=== PATIENT | female | born 1965 | race Caucasian/White ===

== ENCOUNTER 2016-12-26 05:08 | Emergency (ER) | payer BC ==
[~2016-12-26] VITALS: Ht 175.3 cm; Wt 81.6 kg
[2016-12-26 05:39] LABS: Urine Bilirubin Negative (Negative); Urine Blood 3+ /uL (Negative); Urine Color PINK (Yellow); Urine Glucose Normal (Normal); Urine Ketone Negative (Negative); Urine Nitrite Negative (Negative); Urine RBC 1 /hpf (0 - 4); Urine Squamous Epithelial Cell FEW /hpf (<5); Urine Urobilinogen Normal (Negative); Urine pH 6.5 (5.0-8.0)
[2016-12-26 06:33] LABS: BUN/Creatinine Ratio 23.9; Bilirubin, Total 0.9 mg/dL (0.2-1.0); Calcium 8.8 mg/dL (8.5-10.1); Potassium 3.6 mmol/L (3.5-5.1); Total Protein 7.5 g/dL (6.4-8.2)
[2016-12-26 06:37] LABS: Basophils # (auto) 0.1 uL; Basophils % (auto) 0.4 % (0.0-2.0); Eosinophils # (auto) 0.1 uL; Eosinophils % (auto) 0.4 % (0.0-7.0); Hematocrit 42.1 % (36.0-46.0); Hemoglobin 14.4 g/dL (12.2-16.2); Lymphocytes # (auto) 1.3 uL; Lymphocytes % (auto) 8.6 % (10.0-50.0); Mean Corpuscular Hemoglobin 29.5 pg (28.0-32.0); Mean Corpuscular Hgb Conc. 34.3 g/dL (32.0-36.0); Mean Corpuscular Volume 86.2 fL (80.0-100.0); Mean Platelet Volume 7.6 fL (6.9-10.8); Monocytes # (auto) 0.9 uL; Monocytes % (auto) 6.3 % (0.0-12.0); Neutrophils # (auto) 12.4 uL; Neutrophils % (auto) 84.3 % (37.0-80.0); Platelet Count (auto) 252 10^3/uL (140-450); White Blood Cell 14.7 10^3/uL (4.4-10.8)
[2016-12-26 06:45] VITALS: BP 147/81
[2016-12-26] MEDS ORDERED: CIPROFLOXACIN HCL 500 MG TAB PO ONE (07:30)
== END 2016-12-26 07:34 | disposition home or self-care (01) ==
LOC: ER 05:12
DX: R31.9 Hematuria, unspecified (principal); N39.0 Urinary tract infection, site not specified; I10 Essential (primary) hypertension; Z86.73 Personal history of transient ischemic attack (TIA), and cerebral infarction without residual deficits
CPT/HCPCS: 36415; 80053; 81001; 81025; 85025

== ENCOUNTER 2019-04-14 08:00 | Emergency (ER) | payer BC ==
[~2019-04-14] VITALS: Ht 175.3 cm; Wt 78.0 kg
[2019-04-14 08:57] LABS: Basophils # (auto) 0.1 uL; Basophils % (auto) 1.3 % (0.0-2.0); Eosinophils # (auto) 0.1 uL; Eosinophils % (auto) 2.8 % (0.0-7.0); Hematocrit 43.3 % (36.0-46.0); Hemoglobin 14.7 g/dL (12.2-16.2); Lymphocytes # (auto) 1.2 uL; Lymphocytes % (auto) 24.8 % (10.0-50.0); Mean Corpuscular Hemoglobin 29.1 pg (28.0-32.0); Mean Corpuscular Hgb Conc. 33.8 g/dL (32.0-36.0); Mean Corpuscular Volume 86.1 fL (80.0-100.0); Monocytes # (auto) 0.5 uL; Monocytes % (auto) 10.5 % (0.0-12.0); Neutrophils % (auto) 60.6 % (37.0-80.0); Nucleated Red Blood Cells % 0.1 %; Platelet Count (auto) 239 10^3/uL (140-450); Red Blood Cells 5.03 10^6/uL (4.0-5.20); Red Cell Distribution Width 12.7 % (11.8-14.3); White Blood Cell 4.9 10^3/uL (4.4-10.8)
[2019-04-14 09:17] LABS: Alanine Aminotransferase 32 U/L (13-56); Albumin 3.8 g/dL (3.4-5.0); Anion Gap 10 (5-15); Aspartate Aminotransferase 21 U/L (15-37); Calcium 9.1 mg/dL (8.5-10.1); Carbon Dioxide 23 mmol/L (21-32); Chloride 107 mmol/L (98-107); GFR African American 123 mL/min; GFR Non-African American 102 mL/min; Glucose 107 mg/dL (74-106); Magnesium 2.2 mg/dL (1.6-2.6); Potassium 3.7 mmol/L (3.5-5.1); Sodium 140 mmol/L (136-145)
[2019-04-14 09:28] LABS: Alkaline Phosphatase 101 U/L (45-117); BUN/Creatinine Ratio 18.8; Bilirubin, Total 0.4 mg/dL (0.2-1.0); Blood Urea Nitrogen 12 mg/dL (7-18); Total Protein 7.2 g/dL (6.4-8.2)
[2019-04-14 09:41] LABS: Urine Bacteria NONE SEEN /hpf (None Seen); Urine Blood Negative /uL (Negative); Urine Specific Gravity 1.005 (1.001-1.035); Urine WBC <1 /hpf (0 - 5)
[2019-04-14 12:00] VITALS: BP 126/69
== END 2019-04-14 12:15 | disposition home or self-care (01) ==
LOC: ER 08:00
DX: I10 Essential (primary) hypertension (principal); F41.1 Generalized anxiety disorder; G62.9 Polyneuropathy, unspecified; Z86.73 Personal history of transient ischemic attack (TIA), and cerebral infarction without residual deficits
CPT/HCPCS: 36415; 70450; 71046; 80053; 81001; 83735; 84443; 84484; 85025; 93005

== ENCOUNTER → 2019-04-24 | Outpatient (CLI) | payer BC ==
[~2019-04-24] VITALS: Ht 175.3 cm; Wt 76.7 kg
[~2019-04-24] MED LIST: ADENOSINE 64 MG in GIVE UN-DILUTED 0 ML IV ONE; ADENOSINE 90 MG/30 ML INJ IV ONE
[2019-04-24 15:32] LABS: Basophils # (auto) 0 uL; Basophils % (auto) 0.6 % (0.0-2.0); Eosinophils # (auto) 0.1 uL; Eosinophils % (auto) 1.1 % (0.0-7.0); Hemoglobin 14.5 g/dL (12.2-16.2); Lymphocytes # (auto) 1.3 uL; Lymphocytes % (auto) 18.4 % (10.0-50.0); Mean Corpuscular Hemoglobin 29.7 pg (28.0-32.0); Mean Corpuscular Hgb Conc. 34.5 g/dL (32.0-36.0); Mean Corpuscular Volume 86.1 fL (80.0-100.0); Monocytes # (auto) 0.6 uL; Neutrophils % (auto) 70.9 % (37.0-80.0); Nucleated Red Blood Cells % 0.1 %; Platelet Count (auto) 247 10^3/uL (140-450); Red Blood Cells 4.88 10^6/uL (4.0-5.20); Red Cell Distribution Width 12.8 % (11.8-14.3)
[2019-04-24 15:50] LABS: Calcium 9.2 mg/dL (8.5-10.1); Potassium 3.8 mmol/L (3.5-5.1)
[2019-04-24 15:55] LABS: BUN/Creatinine Ratio 33.3; Bilirubin, Total 0.3 mg/dL (0.2-1.0); Total Protein 7.4 g/dL (6.4-8.2)
[2019-04-24 15:57] LABS: Free T4 (Free Thyroxine) 1.19 ng/dL (0.89-1.76)
[2019-04-25 11:49] LABS: Urine Blood Negative /uL (Negative); Urine Specific Gravity 1.009 (1.001-1.035)
== END | disposition home or self-care (01) ==
LOC: Rad HDHVI 13:58
PROVIDERS: ATTEND Internal Medicine
DX: Z00.00 Encounter for general adult medical examination without abnormal findings (principal); I07.1 Rheumatic tricuspid insufficiency; I10 Essential (primary) hypertension; I25.10 Atherosclerotic heart disease of native coronary artery without angina pectoris; E03.9 Hypothyroidism, unspecified; E78.00 Pure hypercholesterolemia, unspecified; K90.9 Intestinal malabsorption, unspecified; D51.9 Vitamin B12 deficiency anemia, unspecified; N39.0 Urinary tract infection, site not specified; R42 Dizziness and giddiness; R00.2 Palpitations; Z79.899 Other long term (current) drug therapy
CPT/HCPCS: 36415; 78452; 80053; 80061; 81003; 82306; 82607; 83036; 84439; 84443; 85025; 93005; 93306; 96374; 96375; A9500; J0153

== ENCOUNTER → 2019-04-29 | Outpatient (CLI) | payer BC ==
[2019-04-29 16:32] LABS: Protein, Urine 7.9 mg/dL (0.0-11.9)
[2019-04-29 18:08] LABS: 24 Hr. Total Protein, Urine 122.4 mg/24 Hr (<149.1)
== END | disposition home or self-care (01) ==
LOC: LAB 13:50
PROVIDERS: ATTEND Internal Medicine
DX: F41.9 Anxiety disorder, unspecified (principal); E34.0 Carcinoid syndrome
CPT/HCPCS: 83497; 83835; 84156; 84585

== ENCOUNTER → 2019-09-11 | Outpatient (CLI) | payer BC ==
[2019-09-11 13:11] LABS: Cholesterol 133 mg/dL (< 200); HDL Cholesterol 50 mg/dL (40-59); LDL Cholesterol 65 mg/dL (< 100); Triglycerides 141 mg/dL (< 150)
== END | disposition home or self-care (01) ==
LOC: LAB 09:04
PROVIDERS: ATTEND Internal Medicine
DX: E78.5 Hyperlipidemia, unspecified (principal)
CPT/HCPCS: 36415; 80061

== ENCOUNTER 2019-10-25 00:35 | Inpatient (IN) | payer BC ==
[~2019-10-25] VITALS: Ht 175.3 cm; Wt 78.9 kg
[2019-10-25] MEDS ORDERED: ACCU-CHEK COMFORT CURVE STRIP VI ONE (00:45)
[2019-10-25 02:21] LABS: Urine Bacteria FEW /hpf (None Seen); Urine Blood Negative /uL (Negative); Urine Specific Gravity 1.002 (1.001-1.035); Urine WBC <1 /hpf (0 - 5)
[2019-10-25 03:20] LABS: Basophils # (auto) 0 10 ^3/uL (0-0.2); Basophils % (auto) 0.6 % (0.0-2.0); Eosinophils # (auto) 0.1 10 ^3/uL (0-0.8); Eosinophils % (auto) 0.9 % (0.0-7.0); Hemoglobin 15.2 g/dL (12.2-16.2); Lymphocytes # (auto) 1.1 10 ^3/uL (0.4-5.4); Lymphocytes % (auto) 14.7 % (10.0-50.0); Mean Corpuscular Hemoglobin 29.2 pg (28.0-32.0); Mean Corpuscular Hgb Conc. 33.8 g/dL (32.0-36.0); Mean Corpuscular Volume 86.5 fL (80.0-100.0); Monocytes # (auto) 0.5 10 ^3/uL (0-1.3); Monocytes % (auto) 6.1 % (0.0-12.0); Neutrophils % (auto) 77.7 % (37.0-80.0); Platelet Count (auto) 240 10^3/uL (140-450); Red Cell Distribution Width 12.4 % (11.8-14.3); White Blood Cell 7.7 10^3/uL (4.4-10.8)
[2019-10-25] MEDS ORDERED: ACETAMINOPHEN 325 MG TAB PO ONE (03:30)
[2019-10-25 03:39] LABS: Albumin 3.9 g/dL (3.4-5.0); BUN/Creatinine Ratio 23.1; Calcium 9.1 mg/dL (8.5-10.1); Potassium 3.8 mmol/L (3.5-5.1)
[2019-10-25 03:42] LABS: Lactic Acid w/Reflex 2.1 mmol/L (0.4-2.0)
[2019-10-25 03:44] LABS: Bilirubin, Total 0.5 mg/dL (0.2-1.0); Total Protein 7.7 g/dL (6.4-8.2)
[2019-10-25 03:56] LABS: INR 0.96 (0.9-1.15); Partial Thromboplastin Time 25.6 sec (23.64-32.05)
[2019-10-25] MEDS ORDERED: MORPHINE SULFATE 4 MG/ML SYR/VIAL ONE (04:15)
[2019-10-25] MEDS ORDERED: ONDANSETRON HCL 4 MG/2 ML VIAL ONE (04:16)
[2019-10-25] MEDS ORDERED: HEPARIN SODIUM (PORCINE) 5000 UNITS/ML 1ML VIAL ONE ×2 (04:21→04:58)
[2019-10-25] MEDS ORDERED: ASPirin 81 mg TAB ONE (04:26)
[2019-10-25] MEDS ORDERED: LORazepam 2MG/ML-1ML VIAL ONE (04:26)
[2019-10-25] MEDS ORDERED: ATORVASTATIN 20 MG TAB PO ONE (04:30)
[2019-10-25] MEDS ORDERED: METOPROLOL TARTRATE 1MG/1ML-5ML VIAL IV ONE (04:30)
[2019-10-25] MEDS ORDERED: ASPirin 81 mg TAB PO ONE (04:30)
[2019-10-25] MEDS ORDERED: HEPARIN 1,000 UNITS/ml 1ML VIAL IV ONE (04:30)
[2019-10-25 04:58] LABS: Magnesium 2.5 mg/dL (1.6-2.6)
[2019-10-25] MEDS ORDERED: ATROPINE SULF 1 MG/10ml SYR ONE (04:58)
[2019-10-25] MEDS ORDERED: ANGIOMAX 250 MG VIAL IV ONE ×2 (04:58→06:11)
[2019-10-25] MEDS ORDERED: VERAPAMIL 2.5MG/ML INJ 2ML VIAL IV ONE ×2 (04:58→05:43)
[2019-10-25] MEDS ORDERED: IOHEXOL 350 MG/ML 100ML IJ ONE (04:59)
[2019-10-25] MEDS ORDERED: MIDAZOLAM HCL 1MG/1ML-2 ML VIAL ONE (04:59)
[2019-10-25] MEDS ORDERED: LIDOCAINE 2%HCL (LOCAL ANESTH.) INJ 20ML MDV ONE (04:59)
[2019-10-25] MEDS ORDERED: fentaNYL CITRATE 100 MCG/2 ML VL ONE (04:59)
[2019-10-25] MEDS ORDERED: SODIUM CHL 0.9% 0 ML ONE (05:01)
[2019-10-25 05:22] LABS: Basophils # (auto) 0 10 ^3/uL (0-0.2); Basophils % (auto) 0.6 % (0.0-2.0); Eosinophils # (auto) 0.1 10 ^3/uL (0-0.8); Eosinophils % (auto) 0.7 % (0.0-7.0); Hematocrit 45.1 % (36.0-46.0); Hemoglobin 15.4 g/dL (12.2-16.2); Lymphocytes # (auto) 1.3 10 ^3/uL (0.4-5.4); Lymphocytes % (auto) 15.1 % (10.0-50.0); Mean Corpuscular Hemoglobin 29.4 pg (28.0-32.0); Mean Corpuscular Hgb Conc. 34.1 g/dL (32.0-36.0); Mean Corpuscular Volume 86.2 fL (80.0-100.0); Monocytes # (auto) 0.5 10 ^3/uL (0-1.3); Monocytes % (auto) 5.5 % (0.0-12.0); Neutrophils # (auto) 6.9 10 ^3/uL (1.6-8.6); Neutrophils % (auto) 78.1 % (37.0-80.0); Nucleated Red Blood Cells % 0.1 %; Platelet Count (auto) 269 10^3/uL (140-450); Red Blood Cells 5.23 10^6/uL (4.0-5.20); Red Cell Distribution Width 12.7 % (11.8-14.3); White Blood Cell 8.9 10^3/uL (4.4-10.8)
[2019-10-25] MEDS ORDERED: MORPHINE SULFATE 4 MG/ML SYR/VIAL IV ONE (05:30)
[2019-10-25] MEDS ORDERED: ASPirin 325 MG TAB PO ONE (05:30)
[2019-10-25] MEDS ORDERED: ONDANSETRON HCL 4 MG/2 ML VIAL IV ONE (05:30)
[2019-10-25] MEDS ORDERED: LORazepam 2MG/ML-1ML VIAL IV ONE (05:30)
[2019-10-25 05:37] LABS: Potassium 3.7 mmol/L (3.5-5.1)
[2019-10-25 05:39] LABS: INR 0.97 (0.9-1.15); Partial Thromboplastin Time 26.5 sec (23.0-31.2)
[2019-10-25 05:47] LABS: BUN/Creatinine Ratio 23.8; Bilirubin, Total 0.4 mg/dL (0.2-1.0); Calcium 9.3 mg/dL (8.5-10.1); Total Protein 7.7 g/dL (6.4-8.2)
[2019-10-25] MEDS ORDERED: SODIUM CHL 0.9% 50 ML ONE (06:11)
[2019-10-25] MEDS ORDERED: HYDROmorphone HCL 2 MG/ML VL IV PRN ×2 (07:15)
[2019-10-25] MEDS ORDERED: cloNIDine HCL 0.1 MG TAB PO PRN (07:15)
[2019-10-25] MEDS ORDERED: ALPRAZolam 0.25 MG TAB PO PRN (07:15)
--- NOTE | 2019-10-25 08:40 | NUR ---
Telemetry admit from Gill Box Operator RODRIGUEZDUSTY admitted to Telemetry unit after SBAR received. Patient oriented to PAGE HUSTON RN primary RN, unit, room, bed, and unit policies regarding patient care and visiting hours. Patient now on continuous telemetry monitoring, tele box # 35 and telemetry reading on arrival to unit is sinus spencer 46. Patient placed on bedside oxygen 2L NC, respirations even and unlabored. Patient denies pain at this time. Patient is s/p left heart cath. Dressing to right groin is clean, dry and intact. Vasc band to right wrist, this RN instructed to begin removing air. Patient instructed to lay flat until 0900, verbalized understanding. Bed in low and locked position, call light within reach. Bed alarm on for safety.
[2019-10-25 08:45] VITALS: BP 105/66
[2019-10-25 09:00] VITALS: BP 105/66
--- NOTE | 2019-10-25 09:00 | NUR ---
Vasc band removed Vasc band removed, no signs or bleeding or hematoma noted at this time. Gauze and Tegaderm, applied. Patient educated on signs and symptoms to monitor for and to call for assistance. Will continue to monitor Q1 hour and PRN.
[2019-10-25] MEDS: SOD CHL 0.45% 1,000 ML IV SCH ×2 (09:03→20:35)
[2019-10-25] MEDS ORDERED: PROP60CA34 PO (09:10)
[2019-10-25] MEDS ORDERED: [UNRECOGNIZED DRUG - CODE] PO (09:10)
[2019-10-25] MEDS ORDERED: EVOL140I SC (09:10)
[2019-10-25] MEDS: ASPirin 81 mg TAB PO SCH (09:55)
--- NOTE | 2019-10-25 09:58 | NUR ---
Dr. Mathur at bedside Discussing plan of care with patient, family and this RN. New orders received. Will continue to monitor Q1 hour and PRN.
[2019-10-25] MEDS: NTG 0.1MG/HR TOPICAL PATCH TD SCH (10:00)
[2019-10-25] MEDS ORDERED: PANTOPRAZOLE 40 MG/10 ML VIAL INJ IV SCH (10:00)
[2019-10-25] MEDS: dilTIAZem 120MG ER CAP PO SCH (10:00)
[2019-10-25] MEDS ORDERED: PROP60CA37 PO (10:13)
--- NOTE | 2019-10-25 11:00 | NUR ---
Call from radiology [facility] they are unable to do abdomen CT due to the fact the patient received contrast today. Per protocol the patient should not receive contrast for 48 hours. Per [facility], CT will be rescheduled for Monday. Will continue to monitor Q1 hour and PRN.
[2019-10-25 13:00] VITALS: BP_SYST 107; BP_SYST 113; BP_DIAS 65; BP_DIAS 68
--- NOTE | 2019-10-25 15:15 | NUR ---
Patient ambulated Patient ambulated to restroom unassisted. Patient tolerated well. Will continue to monitor Q1 hour and PRN.
[2019-10-25 17:00] VITALS: BP 135/73
[2019-10-25] MEDS: SUCRALFATE 1 GM/10 ML ORAL SUSP PO SCH ×3 (17:35→21:08)
--- NOTE | 2019-10-25 19:10 | NUR ---
Closing Note Report given to operations supervisor 2nd shift RN. No signs or symptoms of distress noted at this time.
--- NOTE | 2019-10-25 19:30 | NUR ---
Opening Shift Note Assumed care of patient, AOX4. No S/S of distress/SOB or pain. Fall and safety precautions and in place. Instructed on POC and to call for assist PRN, patient verbalized understanding and in agreement. Will continue to monitor for changes Q1hr and PRN.
[2019-10-25] MEDS: ACETAMINOPHEN 500 MG TAB PO PRN (20:54)
[2019-10-25] MEDS: PANTOPRAZOLE 40 MG TAB PO SCH (21:08)
[2019-10-25 22:00] VITALS: BP 114/63
[2019-10-26] MEDS: SOD CHL 0.45% 1,000 ML IV SCH ×2 (01:40→23:15)
[2019-10-26 05:00] VITALS: BP 110/66
--- NOTE | 2019-10-26 05:00 | NUR ---
COVID SWAB PER MD ORDER, COVID SWAB APPROPRIATELY OBTAINED AND SENT TO LAB. WILL CONTINUE TO MONITOR.
[2019-10-26] MEDS: SUCRALFATE 1 GM/10 ML ORAL SUSP PO SCH ×4 (06:24→21:28)
[2019-10-26 06:58] LABS: Potassium 3.8 mmol/L (3.5-5.1)
[2019-10-26 07:10] LABS: BUN/Creatinine Ratio 21.2; Magnesium 2.4 mg/dL (1.6-2.6); Phosphorus 3.8 mg/dL (2.5-4.90)
--- NOTE | 2019-10-26 07:36 | NUR ---
Opening Shift Note Assumed care of patient, AOX4. No S/S of distress/SOB, denies pain at this time. Plan of care discussed and encouraged to call for assistance prn. Bed in lowest and locked position. Call light and phone within reach. Will continue to monitor for changes Q1hr and PRN. Patient's is at bedside.
[2019-10-26 08:00] VITALS: BP 113/75
[2019-10-26 08:44] VITALS: BP 113/75
[2019-10-26] MEDS: PANTOPRAZOLE 40 MG TAB PO SCH ×2 (09:36→21:28)
[2019-10-26] MEDS: ASPirin 81 mg TAB PO SCH (09:36)
[2019-10-26] MEDS: dilTIAZem 120MG ER CAP PO SCH (09:37)
[2019-10-26] MEDS: NTG 0.1MG/HR TOPICAL PATCH TD SCH (09:38)
--- NOTE | 2019-10-26 10:00 | NUR ---
patient refused to take Nitrodur patch at this time, would like to talk to MD about it.
--- NOTE | 2019-10-26 12:15 | NUR ---
DR Juni REECE AT BEDSIDE, DISCUSSED PLAN OF CARE WITH PATIENT. PATIENT VERBALIZED UNDERSTANDING. NEW ORDER TO DISCONTINUE NITRODUR PATCH. WILL CARRY OUT ORDER.
[2019-10-26 12:44] VITALS: BP 139/77
[2019-10-26] MEDS: ACETAMINOPHEN 500 MG TAB PO PRN (16:44)
--- NOTE | 2019-10-26 16:44 | NUR ---
PATIENT MEDICATED WITH TYLENOL FOR 3/10 HEADACHE. WILL CONTINUE TO MONITOR Q1HR AND PROVIDE COMFORT MEASURES
[2019-10-26 17:00] VITALS: BP 131/82
--- NOTE | 2019-10-26 17:40 | NUR ---
PER RADIOLOGY STAFF. CT ABD/PELV IS SCHEDULED TO BE DONE TOMORROW 10/27/19.
--- NOTE | 2019-10-26 19:35 | NUR ---
Opening Shift Note Assumed care of patient, AOX4. No S/S of distress/SOB or pain. Fall and safety precautions and in place. Call light within reach and able to use. Instructed on POC and to call for assist PRN, patient verbalized understanding and in agreement. Will continue to monitor for changes Q1hr and PRN.
[2019-10-26 22:00] VITALS: BP 109/68
--- NOTE | 2019-10-27 04:30 | NUR ---
OFF TELE / RETURN TELE TELE KILN PUSHER CALLS AT THIS TIME STATING PATIENT OFF TELE. PATIENT STICKERS REAPPLIED, PATIENT BACK ON TELE NOW. WILL CONTINUE TO MONITOR.
[2019-10-27] MEDS: SOD CHL 0.45% 1,000 ML IV SCH (04:37)
[2019-10-27 05:00] VITALS: BP 108/73
[2019-10-27] MEDS: SUCRALFATE 1 GM/10 ML ORAL SUSP PO SCH ×4 (06:26→21:17)
--- NOTE | 2019-10-27 07:35 | NUR ---
Opening Shift Note Assumed care of patient, AOX4. No S/S of distress/SOB, denies pain at this time. Plan of care discussed and encouraged to call for assistance prn. Bed in lowest and locked position. Call light and phone within reach. Will continue to monitor for changes Q1hr and PRN. PATIENT REMAINS NPO AT THIS TIME FOR PROCEDURE.
[2019-10-27 08:00] VITALS: BP 108/64
--- NOTE | 2019-10-27 08:08 | NUR ---
DR REECE AT BEDSIDE, DISCUSSED PLAN OF CARE WITH PATIENT. NO NEW ORDERS AT THIS TIME
[2019-10-27 09:00] VITALS: BP 108/64
--- NOTE | 2019-10-27 10:20 | NUR ---
PATIENT REPORTS SLIGHT DIZZINESS AND FEELING THAT HER BP IS. VITALS ASSESSED AT THIS TIME. BP RECORDED AT 140/99, HR 83 AND SATING AT 95% ON ROOM AIR.
--- NOTE | 2019-10-27 10:38 | NUR ---
DR SANCEHZ ATTENDED TO PATIENT. INFORMED PATIENT ABOUT EGD PROCEDURE TOMORROW. PER MD, HE WANTS SQL TECH'S,(CHARY) NOTE THAT CLEARS PATIENT FOR EGD, DUE TO THE ELEVATED TROPONIN.
[2019-10-27] MEDS ORDERED: IOHEXOL 300 MG/ML 100ML BOTTLE IJ ONE (10:43)
--- NOTE | 2019-10-27 10:55 | NUR ---
PATIENT IS CURRENTLY OFF UNIT FOR CT OF ABD/PELV. WILL RESUME SCHEDULED AM MEDS UPON RETURN TO UNIT.
--- NOTE | 2019-10-27 11:15 | NUR ---
PATIENT HAS RETURN TO UNIT. WILL MEDICATE WITH AM MEDICATIONS.
[2019-10-27] MEDS: PANTOPRAZOLE 40 MG TAB PO SCH ×2 (11:18→21:17)
[2019-10-27] MEDS: ASPirin 81 mg TAB PO SCH (11:18)
[2019-10-27] MEDS: dilTIAZem 120MG ER CAP PO SCH (11:22)
--- NOTE | 2019-10-27 11:22 | NUR ---
RECHECKED BP AT THIS TIME, BP IS 130/83. NO S/S DISTRESS NOTED, NO COMPLAINS OF PAIN. WILL CONTINUE TO MONITOR Q1HR AND PRN.
[2019-10-27 13:00] VITALS: BP 129/83
[2019-10-27 17:00] VITALS: BP 112/57
[2019-10-27 22:00] VITALS: BP 132/78
[2019-10-28] MEDS: SOD CHL 0.45% 1,000 ML IV SCH ×2 (01:55→15:15)
[2019-10-28 05:00] VITALS: BP 118/65
[2019-10-28] MEDS: SUCRALFATE 1 GM/10 ML ORAL SUSP PO SCH ×2 (06:41→11:30)
--- NOTE | 2019-10-28 07:25 | NUR ---
Opening Shift Note Assumed care of patient, awake and alert. No S/S of distress/SOB or pain reported at this time. Instructed on POC and to call for assist PRN, patent aware she is NPO for EGD, consents signed and verified, call light within reach, will continue to monitor for changes Q1hr and PRN.
[2019-10-28 08:00] VITALS: BP 125/78
--- NOTE | 2019-10-28 08:44 | NUR ---
MESSAGED DR DIEZ, REGARDING CARDIAC CLEARANCE FOR EGD
[2019-10-28 08:47] VITALS: BP 125/78
--- NOTE | 2019-10-28 09:30 | NUR ---
CLEARED FOR EGD DR DIEZ MESSAGED ME AND STATES PT IS CLEARED AND HE WILL ALSO WRITE A NOTE REGARDING PT BEING CLEARED FOR PROCEDURE, CONT CARE
[2019-10-28] MEDS: ASPirin 81 mg TAB PO SCH (10:00)
[2019-10-28] MEDS: PANTOPRAZOLE 40 MG TAB PO SCH (10:00)
[2019-10-28] MEDS: dilTIAZem 120MG ER CAP PO SCH ×2 (10:00→18:57)
[2019-10-28] MEDS ORDERED: MIDAZOLAM HCL 5 MG/ML-1ML VIAL ONE (10:36)
[2019-10-28] MEDS ORDERED: diphenhdrAMINE HCL 50 MG/1 ML VL ONE (10:36)
[2019-10-28] MEDS ORDERED: SODIUM CHLORIDE LOCK 10 ML ONE (10:36)
[2019-10-28] MEDS ORDERED: LIDOCAINE VISCOUS 2% 15ML UD ONE (10:36)
[2019-10-28] MEDS ORDERED: fentaNYL CITRATE 100 MCG/2 ML VL ONE (10:37)
[2019-10-28 12:13] VITALS: BP 126/75
--- NOTE | 2019-10-28 12:29 | NUR ---
PT OFF UNIT/PRE-OP TAKEN TO PRE-OP, REPORT GIVEN TO KRISS RN, PT AXOX4, FAMILY NOTIFIED BY PATIENT, CONSENTS SIGNED AND VERIFIED, IV PATENT TO LEFT WRIST, NO DISTRESS NOTED AT THIS TIME, CONT CARE
[2019-10-28] MEDS ORDERED: PANTOPRAZOLE 40 MG TAB PO ONE (14:00)
--- NOTE | 2019-10-28 14:16 | NUR ---
Est energy needs [id number] kcal (20-25 kcal/kg BW 79.4kg) Est protein needs 63-79g (20-25 kcal/kg 79.4kg) Will reassess prn. Addendum: 10/28/19 at [address] Amended: Links added.
--- NOTE | 2019-10-28 14:30 | NUR ---
PT BACK FROM EGD PT AWAKE, AXOX4, SLIGHTLY DROWSY, VS 118/68, P 70, O2 100% ON 2L VIA NC, RR 20, TEMP AUX 97.6, CALL LIGHT WITHIN REACH, BED ALARM ON, NO CURRENT C/O PAIN, CONT CARE
[2019-10-28 17:00] VITALS: BP 110/72
--- NOTE | 2019-10-28 19:39 | NUR ---
RECEIVED PATIENT FROM DAY SHIFT RN. PATIENT RESTING IN BED. NO S/S OF DISTRESS NOTED. DENIED PAIN FOR NOW. POC INSTRUCTED AND ENCOURAGED PATIENT TO CALL FOR WELDING TEACHER IF NEEDED. BED IN LOWEST POSITION WITH SIDE RAILS UP X 2. CALL ALBA WITHIN REACH. CONTINUE TO MONITOR FOR CHANGES Q1H AND PRN.
[2019-10-28 22:00] VITALS: BP 143/79
[2019-10-28] MEDS: ACETAMINOPHEN 500 MG TAB PO PRN (22:02)
--- NOTE | 2019-10-28 22:05 | NUR ---
MEDICATED PATIENT FOR PAIN @ 06/03. CONTINUE TO MONITOR.
--- NOTE | 2019-10-28 23:00 | NUR ---
REASSESSED PAIN. PATIENT SLEEPING. NO S/S OF PAIN NOTED. CONTINUE CARE.
[2019-10-29] MEDS: SOD CHL 0.45% 1,000 ML IV SCH (02:43)
--- NOTE | 2019-10-29 03:21 | NUR ---
PATIENT SLEEPING. NO S/S OF DISTRESS NOTED. CONTINUE CARE.
[2019-10-29 05:00] VITALS: BP 109/54
[2019-10-29 08:00] VITALS: BP 128/83
[2019-10-29 09:00] VITALS: BP 128/83
--- NOTE | 2019-10-29 09:35 | NUR ---
MD DR REECE AT BEDSIDE, DISCUSSING POC WITH PT, CONT CARE
[2019-10-29] MEDS ORDERED: PANTOPRAZOLE 40 MG TAB PO SCH (10:00)
[2019-10-29] MEDS: ASPirin 81 mg TAB PO SCH (10:22)
[2019-10-29] MEDS: dilTIAZem 120MG ER CAP PO SCH (10:22)
[2019-10-29 11:39] VITALS: BP 128/83
[2019-10-29 13:00] VITALS: BP 120/80
--- NOTE | 2019-10-29 15:08 | NUR ---
DISCHARGE Discharge instructions given as ordered. Encourage to follow up with PMD as instructed. Appointment made to follow up with Dr Munroe on Nov 04 @ 11:30, and Dr Cormier on 11/11/19, contact and address provided, All questions and concerns addressed. Patient verbalized understanding. Medication reconciliation form completed and copy given to patient. IV removed with catheter intact, pressure dressing applied. Telemetry unit returned to ICU. Patient taken to vehicle via wheelchair with all personal belongings, accompanied by staff and family member. No distress noted at time of departure.
== END 2019-10-29 15:10 | disposition home or self-care (01) | DRG 280 ==
LOC: ER 00:35 → CATH 00:36 → TELE-CENTR 08:57
PROVIDERS: ADMIT Internal Medicine; ATTEND Family Medicine
PROC: 4A023N7 Measurement of Cardiac Sampling and Pressure, Left Heart, Percutaneous Approach (ICD-10-PCS; principal; 2019-10-25)
PROC: B2111ZZ Fluoroscopy of Multiple Coronary Arteries using Low Osmolar Contrast (ICD-10-PCS; 2019-10-25)
PROC: B2151ZZ Fluoroscopy of Left Heart using Low Osmolar Contrast (ICD-10-PCS; 2019-10-25)
PROC: B240ZZ3 Ultrasonography of Single Coronary Artery, Intravascular (ICD-10-PCS; 2019-10-25)
PROC: 0DB68ZX Excision of Stomach, Via Natural or Artificial Opening Endoscopic, Diagnostic (ICD-10-PCS; 2019-10-28)
DX: I21.09 ST elevation (STEMI) myocardial infarction involving other coronary artery of anterior wall (principal); G92 Toxic encephalopathy; I10 Essential (primary) hypertension; E78.5 Hyperlipidemia, unspecified; K29.70 Gastritis, unspecified, without bleeding; Z20.828 Contact with and (suspected) exposure to other viral communicable diseases; F41.9 Anxiety disorder, unspecified; Z86.73 Personal history of transient ischemic attack (TIA), and cerebral infarction without residual deficits; Z87.440 Personal history of urinary (tract) infections; Z80.0 Family history of malignant neoplasm of digestive organs; Z79.899 Other long term (current) drug therapy
CPT/HCPCS: 36415; 43239; 70450; 71045; 74177; 80048; 80053; 80061; 81001; 82088; 82533; 82784; 82962; 83036; 83516; 83605; 83735; 83835; 83880; 84100; 84443; 84484; 85025; 85610; 85730; 86255; 86850; 86900; 86901; 87040; 92978; 93005; 93306; 93458; 93975; 99152; 99153; 99291; C1887; C9113; G0378; J2250; J2405

== ENCOUNTER 2019-10-31 19:36 | Inpatient (IN) | payer BC ==
[~2019-10-31] VITALS: Ht 175.3 cm; Wt 76.3 kg
[~2019-10-31 19:36] MED LIST changes: -ADENOSINE 64 MG in GIVE UN-DILUTED 0 ML IV ONE; -ADENOSINE 90 MG/30 ML INJ IV ONE; +EVOL140I SC; +PROP60CA37 PO; +[UNRECOGNIZED DRUG - CODE] PO
[2019-10-31] MEDS ORDERED: ONDANSETRON HCL 4 MG/2 ML VIAL IV ONE (20:00)
[2019-10-31] MEDS ORDERED: MORPHINE SULFATE 4 MG/ML SYR/VIAL IV ONE (20:00)
[2019-10-31 20:22] LABS: Basophils # (auto) 0 10 ^3/uL (0-0.2); Basophils % (auto) 0.6 % (0.0-2.0); Eosinophils # (auto) 0.2 10 ^3/uL (0-0.8); Eosinophils % (auto) 2.6 % (0.0-7.0); Hematocrit 42.2 % (36.0-46.0); Hemoglobin 14.1 g/dL (12.2-16.2); Lymphocytes # (auto) 1.4 10 ^3/uL (0.4-5.4); Lymphocytes % (auto) 22.5 % (10.0-50.0); Mean Corpuscular Hemoglobin 29.1 pg (28.0-32.0); Mean Corpuscular Hgb Conc. 33.3 g/dL (32.0-36.0); Mean Corpuscular Volume 87.3 fL (80.0-100.0); Monocytes # (auto) 0.6 10 ^3/uL (0-1.3); Monocytes % (auto) 9.4 % (0.0-12.0); Neutrophils % (auto) 64.9 % (37.0-80.0); Platelet Count (auto) 265 10^3/uL (140-450); Red Blood Cells 4.84 10^6/uL (4.0-5.20); Red Cell Distribution Width 12.6 % (11.8-14.3); White Blood Cell 6.2 10^3/uL (4.4-10.8)
[2019-10-31 20:38] LABS: Albumin 3.8 g/dL (3.4-5.0); Anion Gap 8 (5-15); Blood Urea Nitrogen 14 mg/dL (7-18); Carbon Dioxide 27 mmol/L (21-32); Chloride 106 mmol/L (98-107); Glucose 156 mg/dL (74-106); Potassium 3.1 mmol/L (3.5-5.1); Sodium 141 mmol/L (136-145)
[2019-10-31 20:39] LABS: INR 0.96 (0.9-1.15); Partial Thromboplastin Time 23.8 sec (23.0-31.2)
[2019-10-31 20:40] LABS: BUN/Creatinine Ratio 19.7; GFR African American 110 mL/min; GFR Non-African American 91 mL/min
[2019-10-31 20:48] LABS: Alanine Aminotransferase 30 U/L (13-56); Alkaline Phosphatase 115 U/L (45-117); Aspartate Aminotransferase 23 U/L (15-37); Bilirubin, Total 0.4 mg/dL (0.2-1.0); Total Protein 7.4 g/dL (6.4-8.2)
[2019-10-31] MEDS ORDERED: MORPHINE SULF INJ 2 MG/ML SYRINGE 1ML IV PRN (21:00)
[2019-10-31] MEDS ORDERED: ONDANSETRON HCL 4 MG/2 ML VIAL IV PRN (21:00)
[2019-10-31] MEDS ORDERED: TEMAZEPAM 15 MG CAP PO PRN (21:00)
[2019-10-31] MEDS ORDERED: ACETAMINOPHEN 325 MG TAB PO PRN (21:00)
[2019-10-31] MEDS ORDERED: NITROGLYCERIN 0.4 MG SL TAB SL PRN (21:00)
[2019-10-31] MEDS ORDERED: ATORVASTATIN 20 MG TAB PO SCH (22:00)
--- NOTE | 2019-10-31 23:30 | NUR ---
Patient brought to unit Patient came up via wheelchair. Patient A&Ox4. No s/s of distress or pain noted at this time. Patient oriented to unit, room, and bed. Patient verbalized understanding. Safety measures maintained by keeping the bed locked in lowest position, 2 side rails up, personal items and call light within reach. Will continue to monitor.
--- NOTE | 2019-11-01 00:30 | NUR ---
Paged Hospitalist Patient having chest pain. 09/03. Patient refused PRN medication.
--- NOTE | 2019-11-01 00:35 | NUR ---
EKG Patient having chest pain, radiating to left arm. EKG done. Sinus rhythm. BP 137/77. HR 83.
--- NOTE | 2019-11-01 00:50 | NUR ---
Talked to Hospitalist Hospitalist made aware of situation. No interventions at this time.
[2019-11-01 02:07] VITALS: BP 132/77
[2019-11-01 05:00] VITALS: BP 135/75
[2019-11-01 07:04] LABS: Basophils # (auto) 0 10 ^3/uL (0-0.2); Basophils % (auto) 0.7 % (0.0-2.0); Eosinophils # (auto) 0.2 10 ^3/uL (0-0.8); Eosinophils % (auto) 3.5 % (0.0-7.0); Hematocrit 38.7 % (36.0-46.0); Hemoglobin 12.8 g/dL (12.2-16.2); Lymphocytes # (auto) 1.2 10 ^3/uL (0.4-5.4); Lymphocytes % (auto) 23.9 % (10.0-50.0); Mean Corpuscular Hemoglobin 28.8 pg (28.0-32.0); Mean Corpuscular Hgb Conc. 33.1 g/dL (32.0-36.0); Monocytes # (auto) 0.5 10 ^3/uL (0-1.3); Neutrophils # (auto) 3.1 10 ^3/uL (1.6-8.6); Neutrophils % (auto) 61.9 % (37.0-80.0); Platelet Count (auto) 233 10^3/uL (140-450); Red Blood Cells 4.45 10^6/uL (4.0-5.20); Red Cell Distribution Width 12.9 % (11.8-14.3); White Blood Cell 5.1 10^3/uL (4.4-10.8)
[2019-11-01 07:08] LABS: BUN/Creatinine Ratio 26.4; Calcium 8.3 mg/dL (8.5-10.1); Potassium 3.9 mmol/L (3.5-5.1)
[2019-11-01 08:00] VITALS: BP 159/93
--- NOTE | 2019-11-01 08:10 | NUR ---
Opening Shift Note Assumed care of patient, awake and alert. No S/S of distress/SOB or pain. Instructed on POC and to call for assist PRN. Bed at lowest locked position and call light within reach. Will continue to monitor for changes Q1hr and PRN.
[2019-11-01 09:00] VITALS: BP 159/93
[2019-11-01] MEDS ORDERED: ASPirin 81 mg TAB PO SCH (10:00)
[2019-11-01] MEDS ORDERED: dilTIAZem 120MG ER CAP PO SCH (10:00)
[2019-11-01] MEDS ORDERED: PANTOPRAZOLE 40 MG TAB PO SCH (10:00)
--- NOTE | 2019-11-01 10:33 | NUR ---
Patient informed of upcoming test in radiology at 1400. Patient informed of NPO status. Pt verbalized understanding.
--- NOTE | 2019-11-01 11:03 | NUR ---
Urine sample collected and sent to lab.
[2019-11-01 11:52] LABS: Urine Bacteria NONE SEEN /hpf (None Seen); Urine Blood Negative /uL (Negative); Urine Specific Gravity 1.006 (1.001-1.035); Urine WBC <1 /hpf (0 - 5)
--- NOTE | 2019-11-01 13:19 | NUR ---
IV insertion IV access obtained, via clean sterile technique by inserting 20 gauge catheter at right AC after 3 attempt. IV secured properly. No trauma to site. Patient tolerated well. Addendum: 11/01/19 at 1548 by Tori León RN PATIENT REQUESTING FOR IV removal IV DC'd with clean sterile technique, catheter fully intact. Pressure dressing applied to site. Patient tolerated well.
[2019-11-01] MEDS ORDERED: DILT120C12 PO (13:34)
[2019-11-01] MEDS ORDERED: SERT50TA PO (13:34)
[2019-11-01] MEDS ORDERED: ASPI81CH43 PO (13:37)
[2019-11-01] MEDS ORDERED: ATOR10TA52 PO (13:37)
[2019-11-01] MEDS ORDERED: IOHEXOL 350 MG/ML 100ML IJ ONE (14:09)
[2019-11-01 16:03] VITALS: BP 136/84
--- NOTE | 2019-11-01 17:41 | NUR ---
Discharge instructions given as ordered. Encourage to follow up with PMD as instructed. All questions and concerns addressed. Patient verbalized understanding. Medication reconciliation form completed and copy given to patient. IV removed with catheter intact, pressure dressing applied. Telemetry unit returned to ICU. Patient taken to vehicle via wheelchair with all personal belongings, accompanied by this nurse. No distress noted at time of departure.
[2019-11-02] MEDS ORDERED: SERTRALINE HCL 50 MG TAB PO SCH (10:00)
[2019-11-02] MEDS ORDERED: dilTIAZem 120MG ER CAP PO SCH (10:00)
== END 2019-11-01 17:45 | disposition home or self-care (01) | DRG 313 ==
LOC: ER 19:36 → TELE 19:37 → TELE-WESTW 23:36
PROVIDERS: ADMIT Nurse Practitioner; ATTEND Internal Medicine
DX: R07.89 Other chest pain (principal); E78.5 Hyperlipidemia, unspecified; E03.9 Hypothyroidism, unspecified; I25.119 Atherosclerotic heart disease of native coronary artery with unspecified angina pectoris; I10 Essential (primary) hypertension; Z86.73 Personal history of transient ischemic attack (TIA), and cerebral infarction without residual deficits; I25.2 Old myocardial infarction; Z95.5 Presence of coronary angioplasty implant and graft; Z79.899 Other long term (current) drug therapy
CPT/HCPCS: 36415; 71045; 71275; 80048; 80053; 81001; 84484; 85025; 85610; 85730; 87081; 93005; 96374; 96375; 99291; G0378; J2405

== ENCOUNTER → 2020-05-05 | Outpatient (CLI) | payer BC ==
[~2020-05-05] MED LIST changes: +ASPI81CH43 PO; +ATOR10TA52 PO; +DILT120C12 PO; -PROP60CA37 PO; +SERT50TA PO; -[UNRECOGNIZED DRUG - CODE] PO
[2020-05-05 11:30] LABS: Basophils # (auto) 0 10 ^3/uL (0-0.2); Basophils % (auto) 0.7 % (0.0-2.0); Eosinophils # (auto) 0.1 10 ^3/uL (0-0.8); Eosinophils % (auto) 2.4 % (0.0-7.0); Lymphocytes # (auto) 1.1 10 ^3/uL (0.4-5.4); Lymphocytes % (auto) 22.1 % (10.0-50.0); Mean Corpuscular Hemoglobin 29.4 pg (28.0-32.0); Mean Corpuscular Hgb Conc. 34.3 g/dL (32.0-36.0); Mean Corpuscular Volume 85.9 fL (80.0-100.0); Monocytes # (auto) 0.5 10 ^3/uL (0-1.3); Monocytes % (auto) 9.2 % (0.0-12.0); Neutrophils # (auto) 3.3 10 ^3/uL (1.6-8.6); Neutrophils % (auto) 65.6 % (37.0-80.0); Nucleated Red Blood Cells % 0.2 %; Platelet Count (auto) 251 10^3/uL (140-450); Red Blood Cells 4.77 10^6/uL (4.0-5.20); Red Cell Distribution Width 13.2 % (11.8-14.3)
[2020-05-05 11:37] LABS: Urine Blood Negative /uL (Negative); Urine Specific Gravity 1.022 (1.001-1.035)
[2020-05-05 11:47] LABS: Albumin 3.7 g/dL (3.4-5.0); Free T4 (Free Thyroxine) 1.17 ng/dL (0.89-1.76); Potassium 3.9 mmol/L (3.5-5.1)
[2020-05-05 11:54] LABS: BUN/Creatinine Ratio 20.5; Bilirubin, Total 0.5 mg/dL (0.2-1.0); Calcium 8.8 mg/dL (8.5-10.1); Total Protein 7.4 g/dL (6.4-8.2)
== END | disposition home or self-care (01) ==
LOC: LAB 09:00
PROVIDERS: ATTEND Internal Medicine
DX: D51.3 Other dietary vitamin B12 deficiency anemia (principal); I10 Essential (primary) hypertension; E11.9 Type 2 diabetes mellitus without complications; E55.9 Vitamin D deficiency, unspecified; D64.9 Anemia, unspecified; R00.2 Palpitations; R53.1 Weakness; R30.0 Dysuria
CPT/HCPCS: 36415; 80053; 80061; 81003; 82306; 82607; 83036; 84439; 84443; 85025

== ENCOUNTER 2020-07-30 17:12 | Emergency (ER) | payer BC ==
[~2020-07-30] VITALS: Ht 175.3 cm; Wt 79.8 kg
[2020-07-30 18:47] VITALS: BP 138/61
== END 2020-07-30 19:37 | disposition home or self-care (01) ==
LOC: ER 17:12
DX: S83.92XA Sprain of unspecified site of left knee, initial encounter (principal); S16.1XXA Strain of muscle, fascia and tendon at neck level, initial encounter; S40.012A Contusion of left shoulder, initial encounter; S46.912A Strain of unspecified muscle, fascia and tendon at shoulder and upper arm level, left arm, initial encounter; I10 Essential (primary) hypertension; I25.2 Old myocardial infarction; E78.5 Hyperlipidemia, unspecified; Z86.73 Personal history of transient ischemic attack (TIA), and cerebral infarction without residual deficits; Z90.89 Acquired absence of other organs; Z88.1 Allergy status to other antibiotic agents; V43.52XA Car driver injured in collision with other type car in traffic accident, initial encounter; Y93.89 Activity, other specified; Y99.8 Other external cause status; Y92.410 Unspecified street and highway as the place of occurrence of the external cause
CPT/HCPCS: 72040; 73030; 73562